=== PATIENT | male | born 1990 | race Caucasian/White ===

== ENCOUNTER → 2017-02-12 | Outpatient (CLI) | payer BC ==
[2017-02-12 17:29] LABS: BUN/CREATININE RATIO 19 (0-10)
== END ==
LOC: LAB 15:55 → EDBD 15:55
PROVIDERS: Internal Medicine Gastroenterology
DX: K74.60 Unspecified cirrhosis of liver (principal); R18.8 Other ascites
CPT/HCPCS: 36415; 80048